=== PATIENT | female | born 1990 | race Caucasian/White ===

== ENCOUNTER 2018-12-21 12:53 | Outpatient (CLI) | payer BC ==
--- NOTE | 2018-12-21 14:53 | CT ---
CT ORBITS WITHOUT CONTRAST: HISTORY: Increased pressure behind the left eye. COMPARISON: None. 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 No acute intracranial hemorrhage is appreciated. The globes themselves are normal. No intraconal or extraconal mass. The optic nerves are normal. B oth lenses are normal. The medial orbital appiah, lateral orbital appiah, orbital roof, and orbital floors are all intact. Th e orbital apices are normal. Normal alignment of the temporomandibular joints. The skull base is unremarkable. No significant mucosal sinus thickening. Internal ears are normal. IMPRESSION: Normal examination of the orbits. POS: [facility]
== END 2018-12-21 12:54 | disposition home or self-care (01) ==
LOC: SCSCT 12:53
PROVIDERS: ATTEND Family Medicine
DX: D35.2 Benign neoplasm of pituitary gland (principal)
CPT/HCPCS: 70480

== ENCOUNTER 2019-12-04 09:36 | Outpatient (CLI) | payer BC ==
[2019-12-04] MEDS ORDERED: Iopamidol-370 76% 500 ML 1 ML ONE (12:41)
--- NOTE | 2019-12-04 13:28 | CT ---
ABDOMEN CT WITH CONTRAST PELVIC CT WITH CONTRAST: HISTORY: Periumbilical abdominal pain, worsening. COMPARISON: None. FINDINGS: ABDOMEN CT: Left lower lobe atelectasis. Normal heart size. Unremarkable aorta. Portal vein is patent. Gallbladder is unremarkable. Liver, spleen, pancreas, and adrenal glands have appropriate attenuation and enhancement. No gastrohepatic, retrocrural, or periportal lymphadenopathy. No mesenteric mass, lymphadenopathy, free air, or free fluid. Gastric mucosa, duodenum, and multiple normal-caliber small bowel loops are identified. Ileocecal ju nction is unremarkable. There is contrast and fecal material opacifying a normal caliber appendix. Occasional diverticulum. No diverticulitis. Normal-caliber appendix is noted. Appendix has a retro cecal location. PELVIC CT: Uterus and right adnexa are unremarkable. There is a peripherally enhancing, centrally hypodense les ion in the left adnexa, compatible with a dominant ovarian follicle measuring 2.0 x 1.3 cm. A trace amount of free fluid in the pelvis is presumed to be physiologic. No mass, lymphadenopathy, or free air. At the level of the umbilicus, there is a minimal ventral abdominal wall hernia containing mesenteric fat. No evidence of bowel herniation. There are no lytic or blastic lesions within the osseous structures. IMPRESSION: 1. No acute abnormality in the abdomen or pelvis. 2. Incidental left ovarian dominant follicle. POS: [facility]
== END 2019-12-04 09:37 | disposition home or self-care (01) ==
LOC: BICCT 09:36
PROVIDERS: ATTEND Physician Assistant Medical
DX: R10.33 Periumbilical pain (principal); N83.8 Other noninflammatory disorders of ovary, fallopian tube and broad ligament
CPT/HCPCS: 74177

== ENCOUNTER 2020-04-02 16:26 | Outpatient (CLI) | payer BC ==
--- NOTE | 2020-04-02 16:39 | RAD ---
EXAM: Chest 2 views: HISTORY: Costochondritis with chest pain COMPARISON: None. FINDINGS: There is a normal-sized cardiomediastinal silhouette. There is no evidence of consolidation, mass, or pleural effusion. The bones are unremarkable. IMPRESSION: No evidence of acute cardiopulmonary disease
== END 2020-04-02 16:27 | disposition home or self-care (01) ==
LOC: BICRAD 16:26
PROVIDERS: ATTEND Physician Assistant Medical
DX: K76.0 Fatty (change of) liver, not elsewhere classified (principal); M94.0 Chondrocostal junction syndrome [Tietze]; R19.7 Diarrhea, unspecified
CPT/HCPCS: 71046

== ENCOUNTER 2022-05-12 13:00 | Outpatient (CLI) | payer BC | END 2022-05-12 13:01 | disposition home or self-care (01) | LOC: BICULT 13:00 | PROVIDERS: ATTEND Urology | DX: R10.11 Right upper quadrant pain (principal) | CPT/HCPCS: 76770 ==